=== PATIENT | male | born 1970 | race African-American/Black ===

== ENCOUNTER 2017-01-25 15:10 | Emergency (ER) | payer SELFPAY ==
[~2017-01-25] VITALS: Ht 188 cm; Wt 83.9 kg
[2017-01-25 16:05] VITALS: BP 133/99
== END 2017-01-25 16:24 | disposition home or self-care (01) ==
LOC: ER 15:15
DX: J02.9 Acute pharyngitis, unspecified (principal); J20.9 Acute bronchitis, unspecified